=== PATIENT | male | born 1950 | race Caucasian/White ===

== ENCOUNTER 2023-03-01 13:36 | Outpatient (CLI) | payer MEDICARE, BC | END 2023-03-01 13:37 | disposition home or self-care (01) | LOC: CT 13:36 | PROVIDERS: ATTEND Anesthesiology Pain Medicine | DX: M47.22 Other spondylosis with radiculopathy, cervical region (principal); M48.02 Spinal stenosis, cervical region; M46.1 Sacroiliitis, not elsewhere classified | CPT/HCPCS: 72125; G0463; 99214; J1040; J2001; S0020 ==